=== PATIENT | female | born 1995 | race Caucasian/White ===

== ENCOUNTER 2023-02-13 07:21 | Emergency (ER) | payer OTHER ==
[~2023-02-13] VITALS: Ht 154.9 cm; Wt 58.1 kg
[2023-02-13] MEDS ORDERED: DOXYCYCLINE HYCLATE 100 MG TABLET PO ONE (07:45)
[2023-02-13] MEDS ORDERED: CEFTRIAXONE 500 MG VIAL IM ONE (07:45)
[2023-02-13] MEDS ORDERED: DOXYCYCLINE HYCLATE 100 MG TABLET ONE (07:49)
[2023-02-13] MEDS ORDERED: CEFTRIAXONE 500 MG VIAL ONE (07:49)
[2023-02-13] MEDS ORDERED: LIDOCAINE HCL 1% 20 ML VIAL ONE (07:52)
[2023-02-13 08:16] LABS: *BILIRUBIN,URIN NEGATIVE (NEGATIVE); *CLARITY,URINE CLEAR (CLEAR); *COLOR,URINE YELLOW (YELLOW); *KETONES,URINE NEGATIVE (NEGATIVE); *PROTEIN,URINE NEGATIVE (NEGATIVE); *UROBILINOGEN,URINE 0.2 E.U./dl (NORMAL); LEUKOCYTE ESTERASE ,URINE NEGATIVE (NEGATIVE); NITRITE, URINE NEGATIVE (NEGATIVE); UGLUCOSE NEGATIVE (NEGATIVE)
[2023-02-13 08:20] LABS: *BLOOD, URINE TRACE (NEGATIVE)
[2023-02-13 08:25] LABS: BACTERIA,URINE FEW /HPF (NONE SEEN); SQUAMOUS EPITHELIAL CELL,UR MODERATE /HPF (NONE SEEN); WBC,URINE 0-3 /HPF (0-3)
[2023-02-13] MEDS ORDERED: DOXY100C5 PO (08:26)
[2023-02-13 08:39] LABS: *URINE HCG, QUAL NEGATIVE (NEGATIVE)
[2023-02-13 08:51] VITALS: BP 105/69; TEMP 98.6; O2SAT 100
== END 2023-02-13 08:51 | disposition home or self-care (01) ==
LOC: ER 07:21
DX: A64 Unspecified sexually transmitted disease (principal); Z88.1 Allergy status to other antibiotic agents
CPT/HCPCS: 99283; 81001; 84703; 96372; J0696; J3490; A4663